=== PATIENT | male | born 1975 | race Caucasian/White ===

== ENCOUNTER → 2018-07-29 | Outpatient (CLI) | payer OTHER ==
[2018-07-29 10:22] LABS: Basophils % (A) 1 %; Eosinophils # (A) 0.3 k/uL (0-0.7); Eosinophils % (A) 5 %; HCT 43.9 % (39.0-53.0); HGB 14.5 gm/dL (13.0-17.5); Lymphocytes # (A) 1.7 k/uL (1.0-4.8); Lymphocytes % (A) 33 %; MCH 29.7 pg (25.0-35.0); Mean Platelet Volume 6.5; Monocytes # (A) 0.3 k/uL (0-1.0); Monocytes % (A) 5 %; Neutrophils # (A) 2.7 k/uL (1.3-7.7); Neutrophils % (A) 53 %; Platelet Count 260 k/uL (150-450); RBC 4.88 m/uL (4.30-5.90); RDW 12.6 % (11.5-15.5); WBC 5.1 k/uL (3.8-10.6)
[2018-07-29 16:52] LABS: C Reactive Protein, High Sens 2.77 mg/L (0.000-3.000)
[2018-07-29 17:02] LABS: Sex Horm Bind Glob 26.9 nmol/L (14.55-94.64)
[2018-07-29 17:06] LABS: Vitamin D 25 Hydroxy 21.7 ng/mL (30.0-100.0)
[2018-07-29 17:22] LABS: Albumin 4.5 g/dL (3.80-4.90); Albumin/Globulin Ratio 2.81 (1.20-2.10); Calcium 9.1 mg/dL (8.7-10.3); Globulin 1.6 g/dL (2.1-3.7); LDL Cholesterol,Calculated 121.2 mg/dL (0.0-131.0); Potassium 4.5 mmol/L (3.5-5.5); Total Bilirubin 0.8 mg/dL (0.2-1.2); Total Protein 6.1 g/dL (6.2-8.2); VLDL Calculation 10.8 mg/dL (5.00-40.00)
[2018-07-29 17:32] LABS: T4, Free (Free Thyroxine) 1.1 ng/dL (0.80-1.80)
[2018-07-29 17:44] LABS: DHEA Sulfate 915.1 ug/dL (34.5-568.9)
[2018-07-29 18:34] LABS: Hemoglobin A1C 5.8 % (4.0-6.0)
[2018-08-02 00:18] LABS: Testosterone, Free, LC/MS/MS 88.6 pg/mL (46.0-224.0)
== END | disposition home or self-care (01) ==
LOC: LABWHC1 09:08
PROVIDERS: ATTEND Internal Medicine
DX: E34.9 Endocrine disorder, unspecified (principal); E07.9 Disorder of thyroid, unspecified; E55.9 Vitamin D deficiency, unspecified; E23.0 Hypopituitarism
CPT/HCPCS: 36415; 80053; 80061; 80327; 82040; 82306; 82533; 82627; 82670; 83036; 83735; 84153; 84270; 84305; 84403; 84439; 84443; 84481; 85025; 86141

== ENCOUNTER 2021-01-05 13:46 | Emergency (ER) | payer OTHER ==
[2021-01-05 13:56] VITALS: BP 122/84; PULSE 85; RESP 20; TEMP 97.7
[2021-01-05] MEDS: LIDOCAINE 1% INJ 10MG/ML (20 ML MDV) SQ ONE ×2 (14:25→14:26)
[2021-01-05] MEDS ORDERED: DIPH,PERTUS(ACELL)TETVAC-LF 0.5 ML VIAL IM ONE (14:27)
[2021-01-05] MEDS ORDERED: LIDOCAINE 1%-EPI 1:100,000 20 ML VIAL SQ STA (14:27)
--- NOTE | 2021-01-05 14:50 | ED ---
Wound/Laceration HPI - General Chief Complaint: Wound/Laceration Stated Complaint: foot lac Time Seen by Provider: 01/05/21 14:05 Source: patient Mode of arrival: ambulatory Limitations: no limitations - History of Present Illness Initial Comments: 45-year-old male presents emergency Department with a chief complaint of a chainsaw injury. States this occurred on his left foot about one hour prior to arrival. Reports it was some bleeding which is since resolved. States he was consolable with a chainsaw. Tetanus is not up-to-date. Reports some pain at injury site passed denies any paresthesias. States he is able to move his foot and toes without any difficulty. States pain is minimal at this time. - Related Data Home Medications Medication Instructions Recorded Confirmed Cyclobenzaprine [Flexeril] 10 mg PO TID PRN 12/19/14 12/26/14 guaiFENesin [Mucinex] 600 mg PO BID PRN 12/19/14 12/26/14 Menthol [Icy Hot] 1 each TP DAILY PRN 12/26/14 12/26/14 Vitamin E (Dl,Tocopheryl Acet) 1,000 unit PO DAILY 12/26/14 12/26/14 [Vitamin E] Previous Rx's Medication Instructions Recorded Cyclobenzaprine [Flexeril] 10 mg PO TID PRN #90 tab 12/30/14 HYDROcodone/APAP 10-325MG [[place] 1 each PO Q6H PRN #90 tab 12/30/14 10-325] Allergies Allergy/AdvReac Type Severity Reaction Status Date / Time No Known Allergies Allergy Verified 01/05/21 13:56 Review of Systems ROS Statement: Those systems with pertinent positive or pertinent negative responses have been documented in the HPI. ROS Other: All systems not noted in ROS Statement are negative. 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 MOS History of Any Multi-Drug Resistant Organisms: None Reported Past Surgical History: Back Surgery Additional Past Surgical History / Comment(s): PAIN CLINIC PROC.,WISDOM TEETH REMOVED, 12-26-14 FUSION [id number] Additional Past Anesthesia/Blood Transfusion Reaction / Comment(s): NEVER HAS HAD GENERAL ANESTHESIA Past Psychological History: No Psychological Hx Reported Smoking Status: Current every day smoker Past Alcohol Use History: Daily Past Drug Use History: None Reported - Past Family History Sister(s) Family Medical History: Cancer Additional Family Medical History / Comment(s): BREAST CA Father Family Medical History: Coronary Artery Disease (CAD) Additional Family Medical History / Comment(s): CABG-2 VESSEL Mother Family Medical History: Diabetes Mellitus General Exam Limitations: no limitations General appearance: alert, in no apparent distress Head exam: Present: atraumatic, normocephalic, normal inspection Eye exam: Present: normal appearance, PERRL, EOMI Pupils: Present: normal accommodation ENT exam: Present: normal exam, normal oropharynx, mucous membranes moist Neck exam: Present: normal inspection, full ROM. Absent: tenderness Respiratory exam: Present: normal lung sounds bilaterally. Absent: respiratory distress, wheezes, rales Cardiovascular Exam: Present: regular rate, normal rhythm, normal heart sounds. Absent: systolic murmur Extremities exam: Present: full ROM, tenderness (Mild tenderness at the laceration site), normal capillary refill (Normal cap refill of the toes), other (Palpable DP and PT bilaterally). Absent: normal inspection (3 seminal laceration on the dorsal aspect of the left foot), pedal edema, joint swelling, calf tenderness Back exam: Present: normal inspection, full ROM. Absent: tenderness Neurological exam: Present: alert, oriented X3 Psychiatric exam: Present: normal affect, normal mood Skin exam: Present: warm, dry, intact, normal color Course Vital Signs 01/05/21 13:52 Temperature 97.7 F Pulse Rate 85 Respiratory 20 Rate Blood Pressure 122/84 O2 Sat by Pulse 99 Oximetry Procedures - Laceration Laceration #1 Consent Obtained: verbal consent Indication: laceration Site: lower extremity Size (cm): 4 Description: linear, clean Depth: simple, single layer Sedation/Analgesia: none Anesthetic Used: lidocaine 1%, with epi Anesthesia Technique: local infiltration Amount (mls): 3 Pre-repair: irrigated extensively, deep structures intact Type of Sutures: nylon Size of Sutures: 4-0 Number of Sutures: 7 Technique: simple, interrupted Patient Tolerated Procedure: well, no complications Medical Decision Making - Medical Decision Making 45-year-old male presents emergency department with chief complaint of a lacerat ion. Patient is neurovascularly intact. Patient does not appear to have injured his dorsalis pedis artery and the left foot. It was still palpable medial to the laceration site. he is otherwise neurovascularly intact in the left foot. Laceration site was thoroughly irrigated and repaired with 7 sutures. Patient's are procedure well. Tetanus was updated. Advised to return for suture removal. Case discussed with physician Disposition Clinical Impression: Laceration, Contact with chainsaw as cause of accidental injury Disposition: HOME SELF-CARE Condition: Stable Instructions (If sedation given, give patient instructions): Care For Your Stitches (DC), Laceration (DC) Additional Instructions: Please return to the emergency room in 10-12 days to have sutures removed. Please watch for any signs of infection which may include increased pain, swelling, redness, fever or chills. Please return to emergency room for any signs of infection do occur. Please use clean soap and water over the area to prevent scabbing over your stitches. Please leave wound covered for the first 24-48 hours and then leave wound open to air. Please return to the emergency room for any other concerns. Is patient prescribed a controlled substance at d/c from ED?: No Referrals: None,Stated [Primary Care Provider] - 1-2 days Time of Disposition: 14:49
== END 2021-01-05 14:56 | disposition home or self-care (01) ==
LOC: EC 13:46
DX: S91.312A Laceration without foreign body, left foot, initial encounter (principal); F17.200 Nicotine dependence, unspecified, uncomplicated; W29.3XXA Contact with powered garden and outdoor hand tools and machinery, initial encounter
CPT/HCPCS: 12002; 90471; 90715; 96372; 99283